=== PATIENT | male | born 1990 | race Caucasian/White ===

== ENCOUNTER 2017-07-19 14:59 | Emergency (ER) | payer SELFPAY ==
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
== END 2017-07-19 15:34 | disposition home or self-care (01) ==
LOC: JD.ED 14:59
DX: K04.7 Periapical abscess without sinus (principal); K02.9 Dental caries, unspecified; Z87.891 Personal history of nicotine dependence
CPT/HCPCS: 99283

== ENCOUNTER 2017-09-01 07:57 | Emergency (ER) | payer SELFPAY ==
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
== END 2017-09-01 09:10 | disposition home or self-care (01) ==
LOC: JD.ED 07:57
DX: K02.9 Dental caries, unspecified (principal); K04.7 Periapical abscess without sinus; Z79.899 Other long term (current) drug therapy; Z87.891 Personal history of nicotine dependence
CPT/HCPCS: 99282; 99283

== ENCOUNTER 2017-10-11 16:28 | Emergency (ER) | payer SELFPAY ==
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
[2017-10-11] MEDS ORDERED: oxyCODONE 5 MG Tab PO ONE (18:11)
[2017-10-11] MEDS ORDERED: Ibuprofen 800 MG Tab PO ONE (19:59)
--- NOTE | 2017-10-13 15:05 | CR ---
Right hand: Four views of the right hand were obtained. Comparison: No previous study. Mild deformity of the fifth metacarpal is seen compatible with old healed fracture. Joint spaces are maintained. No acute fracture, dislocation or other bony abnormality is seen. Impression: 1. Old healed fracture as noted above. Right hand exam is otherwise unremarkable. Diagnostic code #2
== END 2017-10-11 20:09 | disposition home or self-care (01) ==
LOC: JD.ED 16:28
DX: S62.001A Unspecified fracture of navicular [scaphoid] bone of right wrist, initial encounter for closed fracture (principal); S40.022A Contusion of left upper arm, initial encounter; Y04.8XXA Assault by other bodily force, initial encounter
CPT/HCPCS: 29125; 73130; 99283; A9270

== ENCOUNTER 2020-01-20 02:30 | Emergency (ER) | payer SELFPAY ==
[2020-01-20] MEDS ORDERED: Acetaminophen 325 MG Tab PO ONE (03:09)
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
[2020-01-20] MEDS ORDERED: Amoxicillin/Clavulanate K 500-125 MG Tab PO ONE (04:56)
--- NOTE | 2020-01-20 07:16 | CR ---
Chest: Portable view of the chest was obtained. Comparison: No previous study. Heart size and mediastinum are normal. Lungs are clear with no acute parenchymal change. Bony structures are grossly intact. Impression: 1. Nothing acute is appreciated on portable chest x-ray. Diagnostic code #1 Study was dictated in MDT
== END 2020-01-20 05:09 ==
LOC: JD.ED 02:30
DX: J02.9 Acute pharyngitis, unspecified (principal); H65.03 Acute serous otitis media, bilateral; Z20.828 Contact with and (suspected) exposure to other viral communicable diseases
CPT/HCPCS: 71045; 87635; 99284; A9270; 99283; U0002